=== PATIENT | male | born 1945 | race Caucasian/White ===

== ENCOUNTER → 2016-05-29 11:50 | Outpatient (CLI) | payer MEDICARE, OTHER ==
[2016-03-21 09:00] VITALS: BMI 35.7
[~2016-05-29 11:50] MED LIST: ASPIRIN81 MG PO; CHRONULAC30 ML PO; CLEOCIN HCL300 MG PO; ENULOSE10 G/15 ML PO; FLORAJEN3 CAPS460 MG PO; FOLIC ACID1 MG PO; GLUCOPHAGE1000 MG PO; HYDROCODONE-IB1 EAC3 PO; IPRAT-ALBUT 0.5-3 ML UPD; LASIX20 MG PO; MUCINEX DM ER1 EAC1 PO; MULTI-DAY VITAM1 TAB PO; OMNICEF300 MG PO; PRILOSEC20 MG PO; PRINIVIL20 MG PO; SAW PALMETTO450 MG PO; TESSALON PERLE100 MG PO; VITAMIN B-121000 MCG PO; XARELTO15 MG PO; ZITHROMAX250 MG PO
== END | disposition home or self-care (01) ==
LOC: D.US 11:50
DX: R18.8 Other ascites (principal); K74.60 Unspecified cirrhosis of liver

== ENCOUNTER 2016-08-04 18:56 | Inpatient (IN) | payer MEDICARE, OTHER ==
[~2016-08-04] VITALS: Ht 185.4 cm; Wt 108.2 kg
[~2016-08-04 18:56] MED LIST changes: -FLORAJEN3 CAPS460 MG PO; -IPRAT-ALBUT 0.5-3 ML UPD; -MUCINEX DM ER1 EAC1 PO; -OMNICEF300 MG PO; -TESSALON PERLE100 MG PO; -ZITHROMAX250 MG PO
[2016-08-04 19:41] LABS: HEMATOCRIT 33.5 % (42.0-54.0); MCHC 32.8 g/dL (31.0-37.0); MCV 91.3 fL (80.0-100.0); PLATELET COUNT 83 10x3/uL (130-400); RBC 3.67 10x6/uL (4.20-6.10); RDW 15.7 % (11.5-14.5); WBC 2.9 10x3/uL (4.8-10.8)
[2016-08-04 20:02] LABS: APPEARANCE CLEAR (CLEAR); BACTERIA FEW /hpf (NONE SEEN); BILIRUBIN NEGATIVE (NEGATIVE); COLOR DK YELLOW (YELLOW); EPITHELIAL CELLS 0-5 /hpf (0-5); GLUCOSE NEGATIVE (NEGATIVE); KETONE NEGATIVE (NEGATIVE); LEUKOCYTE ESTERASE NEGATIVE (NEGATIVE); MUCUS >1+ /lpf (NONE SEEN); NITRITE NEGATIVE (NEGATIVE); PROTEIN NEGATIVE (NEGATIVE); WHITE CELLS - URINE 0-5 /hpf (0-5)
[2016-08-04 20:08] LABS: EOSINOPHILS 3 % (0-7); LYMPHOCYTES 13 % (15-50); MONOCYTES 6 % (2-11); NEUTROPHILS 76 % (40-80); PLATELET ESTIMATE DECREASED
[2016-08-04 20:13] LABS: ALBUMIN 2.3 g/dL (3.4-5.0); ANION GAP 14.2 mmol/L (8-16); BILIRUBIN - TOTAL 2.28 mg/dL (0.2-1.3); CARBON DIOXIDE 23.4 mmol/L (21.0-32.0); CREATININE - SERUM 1.1 mg/dL (0.6-1.3); POTASSIUM - SERUM 3.6 mmol/L (3.5-5.1); PROTEIN - SERUM 6.4 g/dL (6.4-8.2)
[2016-08-04 20:22] LABS: CALCIUM 8.2 mg/dL (8.5-10.1)
[2016-08-05 00:37] VITALS: BP 92/48; Ht 185.4 cm; Wt 108.2 kg
--- NOTE | 2016-08-05 03:15 | NUR ---
RESTING WITH EYES CLOSED, RESP WITH EASE, NO DISTRESS NOTED, CL IN REACH
[2016-08-05 04:00] VITALS: BP 97/38
[2016-08-05 06:02] LABS: BASOPHILS 0.4 % (0.0-2.0); EOSINOPHILS 4.1 % (0-7); HEMATOCRIT 32.1 % (42.0-54.0); HEMOGLOBIN 10.3 g/dL (13.5-17.5); LYMPHOCYTES 15.4 % (15-50); MCH 29.4 pg (26.0-34.0); MCHC 32.1 g/dL (31.0-37.0); MCV 91.7 fL (80.0-100.0); MEAN PLATELET VOLUME 10.3 fL (7.4-10.4); MONOCYTES 21.6 % (2-11); NEUTROPHILS 58.5 % (40-80); PLATELET COUNT 82 10x3/uL (130-400); RDW 15.9 % (11.5-14.5); WBC 2.4 10x3/uL (4.8-10.8)
[2016-08-05 06:26] LABS: ANION GAP 9.2 mmol/L (8-16); BILIRUBIN - TOTAL 2.7 mg/dL (0.2-1.3); CALCIUM 8.3 mg/dL (8.5-10.1); CARBON DIOXIDE 25.4 mmol/L (21.0-32.0); CREATININE - SERUM 1.1 mg/dL (0.6-1.3); POTASSIUM - SERUM 3.6 mmol/L (3.5-5.1); PROTEIN - SERUM 5.9 g/dL (6.4-8.2)
[2016-08-05 08:04] VITALS: BP 91/41
[2016-08-05 12:11] VITALS: BP 107/43
--- NOTE | 2016-08-05 14:04 | NUR ---
Patient Name: LUISA WALLACE Admission Status: ER Accout number: [id number] Admission Date: 08-04-2016 : 1945 Admission Diagnosis: Attending: LEILA Current LOS: 1 Anticipated DC Date: 08-07-2016 Planned Disposition: Home or Self Care Primary Insurance: MEDICARE A & B Discharge Planning Comments: CM MET WITH PATIENT REGARDING D/C NEEDS AND PLANS. PATIENT STATED HE LIVES ALONE AND HAS NO STEPS OR STAIRS AT HIS HOME. PATIENTS NEIGHBOR (JOHANN) WILL DRIVE HIM HOME AT DISCHARGE. PATIENT STATED HE IS INDEPENDENT WITH HIS CARE AND HAS NO DME AT HOME. PATIENTS PCP IS DR. TRAN AND PHARMACY IS [facility] AT THE [facility]. PATIENT HAS NOT HAD HOME HEALTH BEFORE AND WANTS TO SEE IF DOCTOR THINKS HE NEEDS IT AT DISCHARGE. CM WILL CONTINUE TO FOLLOW PATIENT WITH D/C NEEDS AND PLANS. [facility]- [phone] JOHANN (FRIEND) [phone] [place] Driver: Galina Saunders Is the patient Alert and Oriented? Yes 0 * How many steps to enter\exit or inside your home? 0 0 * PCP DR. TRAN 0 * Pharmacy [facility] 0 * Preadmission Environment Home Alone 0 * ADLs Independent 0 * Equipment None 0 * List name and contact numbers for known caregivers / representatives who currently or will assist patient after discharge: JOHANN (NEIGHBOR) [phone] * Community resources currently utilized None 0 * Additional services required to return to the preadmission environment? Yes 0 * Can the patient safely return to the preadmission environment? Yes 0 * Has this patient been hospitalized within the prior 30 days at any hospital? No 0 Grand Total: 0
[2016-08-05 15:10] VITALS: BP 114/61
--- NOTE | 2016-08-05 15:45 | NUR ---
LYING SUPINE AT THIS TIME WITH RESPIRATIONS EVEN AND NON LABORED. CALL LIGHT IN REACH, DENIES NEEDS AT THIS TIME. BED IN LOWEST POSITION WITH WHEELS LOCKED. WILL CONTINUE WITH PLAN OF CARE.
--- NOTE | 2016-08-05 18:00 | NUR ---
PT HAS BEEN AWAKE AND ALERT ORINETD X 3 TODAY NOTED TO HAVE PIV TO RIGHT HAND NO ACUTE DISTRESS NOTED TODAY CALL LIGHT IN REACH SIDE RAILS UP X 2
[2016-08-06] VITALS: BP 119/58
--- NOTE | 2016-08-06 00:59 | NUR ---
PATIENT LYING IN BED. NO DISTRESS NOTED. DENIED PAIN AT THIS TIME. DENIED FURTHER NEEDS. REFUSED FINGER STICKS. HAD THEM DONE AT 1919. INTRUCTED TO CALL IF NEEDED ANYTHING. VERBALIZED UNDERSTANDING. NEED UA. INTRUCTED TO CALL WHEN URINATES. BED LOW, LOCKED, CALL LIGHT IN REACH.
--- NOTE | 2016-08-06 01:59 | NUR ---
PATIENT IS LYING IN BED COMFORTABLY. NO DISTRESS NOTED. DENIES NEEDS AT THIS TIME. INTRUCTED TO CALL IF NEEDED ANYTHING. BED LOW, LOCKED, CALL LIGHT IN REACH.
--- NOTE | 2016-08-06 03:00 | NUR ---
PT IN BED WITH NO DISTRESS. RESPIRATIONS EVEN AND UNLABORED. SIDE RAILS X 2. BED IS LOW. CALL LIGHT IN REACH.
[2016-08-06 04:00] VITALS: BP 107/59
[2016-08-06 06:31] LABS: BASOPHILS 0.8 % (0.0-2.0); EOSINOPHILS 5.3 % (0-7); HEMATOCRIT 32.7 % (42.0-54.0); HEMOGLOBIN 10.6 g/dL (13.5-17.5); IMMATURE GRANULOCYTES 0.4 % (0-5); LYMPHOCYTES 18.1 % (15-50); MCH 29.8 pg (26.0-34.0); MCHC 32.4 g/dL (31.0-37.0); MCV 91.9 fL (80.0-100.0); NEUTROPHILS 55.4 % (40-80); PLATELET COUNT 77 10x3/uL (130-400); RBC 3.56 10x6/uL (4.20-6.10); RDW 16.3 % (11.5-14.5); WBC 2.7 10x3/uL (4.8-10.8)
[2016-08-06 06:58] LABS: ANION GAP 12.8 mmol/L (8-16); BILIRUBIN - TOTAL 2.5 mg/dL (0.2-1.3); CARBON DIOXIDE 23.6 mmol/L (21.0-32.0); CREATININE - SERUM 1.1 mg/dL (0.6-1.3); POTASSIUM - SERUM 3.4 mmol/L (3.5-5.1); PROTEIN - SERUM 5.9 g/dL (6.4-8.2)
[2016-08-06 08:39] VITALS: BP 127/59
--- NOTE | 2016-08-06 09:20 | NUR ---
PT AWAKE AND ALERT ORIENTED X 3 LUNGS CLAER BILATERALLY NO ACUTE DISTRESS NTOED VOIDED TO URINAL FOR UA COLLECTED AND SENT TO LAB AWAITING RESULT.
[2016-08-06 11:43] VITALS: BP 126/70
--- NOTE | 2016-08-06 15:30 | NUR ---
PATIENT IS AWAKE, ALERT AND ORIENTED X'S 4. RESPIRATIONS ARE EVEN AND UNLABORED. PATIENT DENIES NEEDS. BED IN LOWEST POSITION, CALL LIGHT IN REACH.
[2016-08-06 17:04] VITALS: BP 128/69
--- NOTE | 2016-08-06 17:43 | NUR ---
PT WITH NO ACUTE DISTRESS NTOED VOICES ALL NEEDS TO STAFF CALL LIGHT INREACH SIDE RAILS UP X 2 UP AD ALMA TO BATHROOM. WILL MONITOR,
--- NOTE | 2016-08-06 21:31 | NUR ---
PATIENT RESTING IN BED. NO SIGNS OF DISTRESS NOTED AT THIS TIME. SCHEDULED MEDS GIVEN. SHIFT ASSESSMENT COMPLETED. DENIES ANY NEEDS AT THIS TIME. BED LOW. CALL LIGHT IN REACH.
[2016-08-07] VITALS: BP 113/62
[2016-08-07 00:13] LABS: APPEARANCE CLEAR (CLEAR); BILIRUBIN NEGATIVE (NEGATIVE); COLOR DK YELLOW (YELLOW); GLUCOSE NEGATIVE (NEGATIVE); KETONE NEGATIVE (NEGATIVE); LEUKOCYTE ESTERASE TRACE (NEGATIVE); NITRITE NEGATIVE (NEGATIVE); PROTEIN NEGATIVE (NEGATIVE); UROBILINOGEN NORMAL (NORMAL)
[2016-08-07 00:40] LABS: BACTERIA FEW /hpf (NONE SEEN); EPITHELIAL CELLS RARE /hpf (0-5); RED CELLS - URINE 0-5 /hpf (0-5); WHITE CELLS - URINE 0-5 /hpf (0-5)
[2016-08-07 04:00] VITALS: BP 111/60
--- NOTE | 2016-08-07 04:00 | NUR ---
PATIENT SLEEPING WITH NO DISTRESS NOTED. AGREE WITH FISH FRYER ASSESSMENT.
[2016-08-07 05:18] LABS: BASOPHILS 0.7 % (0.0-2.0); EOSINOPHILS 9.3 % (0-7); HEMATOCRIT 31.6 % (42.0-54.0); HEMOGLOBIN 10.6 g/dL (13.5-17.5); LYMPHOCYTES 19.9 % (15-50); MCH 30.4 pg (26.0-34.0); MCHC 33.5 g/dL (31.0-37.0); MCV 90.5 fL (80.0-100.0); MEAN PLATELET VOLUME 10.6 fL (7.4-10.4); NEUTROPHILS 44.1 % (40-80); PLATELET COUNT 77 10x3/uL (130-400); RBC 3.49 10x6/uL (4.20-6.10); RDW 16.4 % (11.5-14.5); WBC 2.8 10x3/uL (4.8-10.8)
[2016-08-07 05:35] LABS: ALBUMIN 2.1 g/dL (3.4-5.0); ALKALINE PHOSPHATASE 98 U/L (46-116); ALT (SGPT) 28 U/L (10-68); CALCIUM 7.8 mg/dL (8.5-10.1); GLUCOSE 124 mg/dL (74-106); PROTEIN - SERUM 6.1 g/dL (6.4-8.2); UREA NITROGEN 11 mg/dL (7-18); eGFR NON AFRICAN AMERICAN 79 mL/min (90-120)
[2016-08-07 05:58] LABS: CALC OSMOLALITY 273 mosm/kg (275-300); CHLORIDE - SERUM 104 mmol/L (98-107); POTASSIUM - SERUM 3.6 mmol/L (3.5-5.1); SODIUM 137 mmol/L (136-145)
--- NOTE | 2016-08-07 07:35 | NUR ---
PT AOX4 RESP EVEN AND NONLABORED PT DENIES NEEDS AT THIS TIME BED AT LOWEST SETTING CALL LIGHT WITHIN REACH. WILL CONTINUE TO MONITOR
[2016-08-07 08:33] VITALS: BP 116/63
[2016-08-07 12:00] VITALS: BP 115/57
[2016-08-07] MEDS ORDERED: IPRAT-ALBUT 0.5-3 ML UPD (12:57)
[2016-08-07] MEDS ORDERED: TESSALON PERLE100 MG PO (12:57)
[2016-08-07] MEDS ORDERED: MUCINEX DM ER1 EAC1 PO (12:57)
[2016-08-07] MEDS ORDERED: FLORAJEN3 CAPS460 MG PO (12:57)
[2016-08-07] MEDS ORDERED: ZITHROMAX250 MG PO (12:58)
[2016-08-07] MEDS ORDERED: OMNICEF300 MG PO (12:59)
--- NOTE | 2016-08-07 13:50 | NUR ---
CM REASSESSMENT NOTE: PATIENT IS BEING D/C HOME TODAY - FRIEND DRIVING HIM. PATIENT STATED HE DID NOT NEED HOME HEALTH AND HAD NO OTHER NEEDS FOR DISCHARGE.
--- NOTE | 2016-08-07 17:06 | NUR ---
PT. AOX4 RESP EVEN AND NONLABORED IV DISCONTINUED WITH CATHETER INTACT.
--- NOTE | 2016-08-07 17:45 | NUR ---
PT OUT OF BUILDING VIA WHEELCHAIR VIA PRIVATE VEHICLE AT THIS TIME
== END 2016-08-07 17:53 | disposition home or self-care (01) | DRG 194 ==
LOC: D.ER 18:56 → D.MS 20:59
PROVIDERS: Family Medicine; ADMIT Family Medicine
DX: J18.9 Pneumonia, unspecified organism (principal); J90 Pleural effusion, not elsewhere classified; R53.1 Weakness; E11.65 Type 2 diabetes mellitus with hyperglycemia; K74.60 Unspecified cirrhosis of liver; D69.6 Thrombocytopenia, unspecified

== ENCOUNTER → 2016-12-20 07:19 | Outpatient (CLI) | payer MEDICARE, OTHER ==
[2016-08-05 00:37] VITALS: BMI 31.4
[~2016-12-20 07:19] MED LIST changes: +FLORAJEN3 CAPS460 MG PO; +IPRAT-ALBUT 0.5-3 ML UPD; +MUCINEX DM ER1 EAC1 PO; +OMNICEF300 MG PO; +TESSALON PERLE100 MG PO; +ZITHROMAX250 MG PO
== END | disposition home or self-care (01) ==
LOC: D.US 07:19
DX: K70.30 Alcoholic cirrhosis of liver without ascites (principal); R19.01 Right upper quadrant abdominal swelling, mass and lump

== ENCOUNTER → 2016-12-26 07:54 | Outpatient (CLI) | payer MEDICARE, OTHER ==
[2016-08-05 00:37] VITALS: BMI 31.4
== END | disposition home or self-care (01) ==
LOC: D.CT 07:54
DX: R16.0 Hepatomegaly, not elsewhere classified (principal)

== ENCOUNTER 2017-01-10 05:25 | Outpatient (CLI) | payer MEDICARE, OTHER ==
[~2017-01-10] VITALS: Ht 185.4 cm; Wt 123.6 kg
--- NOTE | ~2017-01-10 | HEMODYNAMI ---
PATIENT:LUISA WALLACE MEDICAL RECORD: [id number] : [birth year] LOCATION:[facility] ADMISSION DATE: 01/10/17 Generatedon:01/10/201711:22 Patient name: LUISA WALLACE Patient #: [id number] SSN: D OB: 1945 Date of study: 01/10/2017 Page: Of Hemodynamic Procedure Report Patient Data Patient Demographics Procedure consent was obtained First Name: LUISA Gender: Male Last Name: RODRIGO : 1945 Middle Initial: D Age: 71 year(s) Patient #: [id number] Race: Unknown Additional ID: [id number] Contact details Address: [address] [place] [address] State: [place] City: [place] Zip code: [address] Past Medical History Allergies: No known allergies Admission Admission Data Admission Date: 01/10/2017 Admission Time: 5:25 Procedure Procedure Types Cath Procedure Peripheral Cath Diagnostic Procedure Miscellaneous Procedure Description Procedure Date Procedure Date: 01/10/2017 Procedure Start Time: 10:08 Procedure Staff Name Function Gab Zafar MD Performing Physician Kamilah Moore RT Scrub Cody Guerra RT Monitor Procedure Data Cath Procedure Fluoroscopy Diagnostic fluoroscopy Total fluoroscopy Time: 0 time: 0 min min Diagnostic fluoroscopy Total fluoroscopy dose: 963 dose: 963 mGy mGy Contrast Material Contrast Material Type Amount (ml) Isovue 300 42 Diagnostic catheters Device Type Used For End Catheter Placement Diagnostic Infinity 5Fr MPA-2 catheter Merit Impress COBRA 2 5Fr 65CM catheter Merit ULTRA BOLUS FLUSH 5Fr 65CM catheter Hemodynamics Rest Heart Rate: 66 (bpm) Pressure Samples Time Site Value (mmHg) Purpose Heart Use Rate(bpm) 10:31 Portal (22) Snapshot 86 10:33 RA 10/ (6) Snapshot 86 10:41 RA 10/ (8) Snapshot 86 10:42 Portal (18) Snapshot 92 Snapshots Pre Cath Intra NCS Post Cath Vital Signs Time Heart Resp SPO2 NIBP (mmHg) Rhythm Pain Sedation Rate (ipm) (%) Status Level (bpm) 9:30:45 70 13 100 135/73(109) NSR 0 (11) 10(A) , No pain 9:35:07 69 72 100 134/72(102) NSR 0 (11) 10(A) , No pain 9:40:06 74 37 98 Measuring NSR 0 (11) 10(A) , No pain 9:40:19 77 32 98 108/64(82) NSR 0 (11) 10(A) , No pain 9:45:17 86 31 95 Measuring NSR 0 (11) 10(A) , No pain 9:45:24 86 40 95 136/77(102) NSR 0 (11) 10(A) , No pain 9:49:44 82 21 93 118/70(93) NSR 0 (11) 10(A) , No pain 9:54:00 84 17 92 119/65(86) NSR 0 (11) 10(A) , No pain 9:58:14 83 15 93 113/65(82) NSR 0 (11) 10(A) , No pain 10:02:30 83 17 92 116/64(84) NSR 0 (11) 10(A) , No pain 10:06:48 80 16 95 119/63(79) NSR 0 (11) 10(A) , No pain 10:11:04 82 14 94 112/64(75) NSR 0 (11) 10(A) , No pain 10:15:18 86 15 93 112/61(93) NSR 0 (11) 10(A) , No pain 10:19:34 85 17 92 112/61(85) NSR 0 (11) 10(A) , No pain 10:23:48 84 17 93 115/64(82) NSR 0 (11) 10(A) , No pain 10:28:04 84 15 92 110/60(77) NSR 0 (11) 10(A) , No pain 10:32:20 85 17 92 115/59(82) NSR 0 (11) 10(A) , No pain 10:36:36 87 16 92 118/66(90) NSR 0 (11) 10(A) , No pain 10:40:50 87 15 92 126/72(94) NSR 0 (11) 10(A) , No pain 10:45:10 88 18 92 121/65(84) NSR 0 (11) 10(A) , No pain 10:49:26 87 16 91 116/65(92) NSR 0 (11) 10(A) , No pain 10:53:46 88 17 92 121/60(86) NSR 0 (11) 10(A) , No pain 10:58:07 85 16 93 115/61(81) NSR 0 (11) 10(A) , No pain 11:02:24 80 16 94 122/63(87) NSR 0 (11) 10(A) , No pain 11:06:45 97 136/75(111) NSR 0 (11) 10(A) , No pain 11:08:58 98 120/73(103) NSR 0 (11) 10(A) , No pain 11:13:18 136/74(106) NSR 0 (11) 10(A) , No pain 11:17:59 No Cuff NSR 0 (11) 10(A) , No pain 11:21:34 No Cuff NSR 0 (11) 10(A) , No pain Procedure Log Time Note 9:27:24 Cody Guerra RT (R) (CV) sent for patient. Start room use. 9:27:37 Time tracking: Regular hours 9:27:42 Plan of Care:Hemodynamics will remain stable., Cardiac rhythm will remain stable., Comfort level will be maintained., Respiratory function will remain adequate., Patient/ family verbilizes understanding of procedure., Procedure tolerated without complication., Recovers from procedure without complications.. 9:28:05 Patient received from Outpatients to IR Alert and oriented. Tansferred to table in Supine position. 9:28:06 Correct patient and procedure confirmed by team. 9:28:08 Signed procedure consent form obtained from patient. 9:28:08 ECG and BP/O2 sat monitors applied to patient. 9:28:17 Full Disclosure recording started 9:28:18 - 9:28:22 H&P Date Dictated: 01/10/2017 H&P Addendum completed by physician on day of procedure. (MUST COMPLETE FOR ALL OUTPATIENTS). 9:28:24 - 9:29:05 SEE ANESTHESIA NOTE FOR PRE PROCEDURE TIVA 9:29:11 - 9:29:17 Use device set IR Diagnostic 9:29:22 Acist Syringe opened to sterile field. 9:29:23 Acist Hand Control opened to sterile field. 9:29:23 Acist Manifold opened to sterile field. 9:29:24 Bag Decanter opened to sterile field. 9:29:24 Sterile Angiographic Pack opened to sterile field. 9:29:27 Vital chart was started 9:29:28 Baseline sample Acquired. 9:31:28 Right neck area was prepped with chlora-prep and draped in sterile fashion 10:06:51 Physician arrived 10:06:54 --------ALL STOP TIME OUT------ 10:06:54 Final Timeout: patient, procedure, and site verified with staff and physician. All members of the team are in agreement. 10:07:02 Right neck site verified by team. 10:07:08 Physical assessment completed. ASA score P 3 - A patient with severe systemic disease as per Gab Zafar MD. 10:07:12 Sedation plan: IV Moderate Sedation Propofol 10:07:57 Procedure started. 10:08:03 Local anesthetic to right IJ vein with Lidocaine 1% by Gab Zafar MD.INITIAL ACCESS ONLY 10:08:13 TUBING, CONTRAST INJCTN HI PRES opened to sterile field. 10:08:14 TUBING, CONTRAST INJCTN HI PRES opened to sterile field. 10:08:14 Micropuncture VSI 4FR kit opened to sterile field. 10:08:15 Cook BENTSON 145cm guide wire opened to sterile field. 10:08:15 Bard SNARE RETRIEVAL KIT opened to sterile field. 10:10:58 Terumo 6Fr [place] Sheath opened to sterile field. 10:11:13 A Diagnostic Infinity 5Fr MPA-2 catheter was advanced over the wire and used for . 10:20:21 Terumo ANGLE 180L glide wire opened to sterile field. 10:20:46 Terumo TORQUE DEVICE PLASTIC .038 opened to sterile field. 10:22:28 A PrimeRevenue Impress COBRA 2 5Fr 65CM catheter was advanced over the wire an d used for . 10:26:54 A PrimeRevenue ULTRA BOLUS FLUSH 5Fr 65CM catheter was advanced over the wire and used for . 10:30:03 Zero performed for pressure channel P1 10:31:10 Zero performed for pressure channel P1 10:33:07 Zero performed for pressure channel P1 10:37:10 BasixTOUCH Inflation Syringe opened to sterile field. 10:38:41 Inflation number: 1 A Cordis Powerflex Pro 10.0 x 40 x 80cm balloon was prepped and advanced across the Undefined1, then inflated 10:54:09 Procedure ended.(Physican Out) 10:54:28 Contrast amount:Isovue 300 42ml. 10:56:18 Fluoroscopy time 00.00 minutes. 10:56:23 Fluoroscopy dose: 963 mGy 10:56:23 Flurop Dose total: 963 10:56:25 Sharps counted by scrub and verified by R.N. 10:56:38 SEE ANESTHESIA NOTE FOR POST PROCEDURE TIVA 10:56:40 Insertion/operative site no bleeding no hematoma. 10:56:45 Post-op/insertion site Right Jugular vein dressed using a 4 x 4 and Tegaderm. 11:18:07 Report given to Outpatients. 11:18:10 Patient transfered to Outpatients with Stretcher. 11:22:26 Vital chart was stopped Intervention Summary Intervention Notes Time ActionType Lesion and Equipment Action# Pressure Duration Attributes Used 10:38:41 Inflate Undefined1 Cordis 1 0 00:00 balloon Powerflex Pro 10.0 x 40 x 80cm balloon Device Usage Item Name Manufacture Quantity Catalog Number [facility] Part Current Min imal Lot# / Charge Number Stock Stock Serial# Code Acist Syringe Acist 1 64754 404020 029134 071273 20 Medical Systems Inc Acist Hand Acist 1 39412 147958 196215 306137 5 Control Medical Systems Inc Acist Acist 1 90401 598051 025971 814803 5 Manifold Medical Systems Inc Bag Decanter Microtek 1 2002S 312851 74753 501855 5 Medical Inc. Sterile Cardinal 1 [id number] 736042 756617 5 Angiographic Health Pack TUBING, Merit 2 [id number] 348460 651336 896753 5 CONTRAST Medical INJCTN HI PRES Micropuncture VSI VASCULAR 1 7266V 079784 480454 5 VSI 4FR kit SOLUTIONS [facility] 1 [id number] 641244 970593 5 9903674 145cm guide wire Bard SNARE Bard 1 SRK20 497097 821782 5 RETRIEVAL KIT Terumo 6Fr Terumo 1 HYD784 283003 439164 312795 40 [place] Sheath Diagnostic Cardinal 1 [id number] 341591 809143 698909 5 Infinity 5Fr Health MPA-2 catheter Terumo ANGLE Terumo 1 GU1736 428067 113186 884766 5 180L glide wire Terumo TORQUE Gypsum 1 TD01 796778 131701 699327 5 DEVICE Scientific PLASTIC .038 Merit Impress Merit 1 [id number] 134066 163705 764635 5 COBRA 2 5Fr Medical 65CM catheter Merit ULTRA Merit 1 [id number] 650910 669739 5 BOLUS FLUSH Medical 5Fr 65CM catheter BasixTOUCH Merit 1 OJ9032 429557 575987 665314 5 Inflation Medical Syringe Cordis Cardinal 1 [id number] 043082 308390 749774 5 Powerflex Pro Health 10.0 x 40 x 80cm balloon Signature Audit [place] Stage Time Signature Unsigned Intra-Procedure 01/10/2017 Cody 11:22:23 AM Shuffield RT (R) (CV) Signatures Monitor : Cody Signature : Shuffield RT Date : Time : [facility] [address] [place] [address]
[2017-01-10 05:59] LABS: BASOPHILS 0.6 % (0-2); EOSINOPHILS 7.1 % (0-7); HEMATOCRIT 33.9 % (42.0-54.0); HEMOGLOBIN 10.9 g/dL (13.5-17.5); IMMATURE GRANULOCYTES 0.3 % (0-5); LYMPHOCYTES 14.8 % (15-50); MCH 29.1 pg (26.0-34.0); MCHC 32.2 g/dL (31.0-37.0); MCV 90.4 fL (80.0-100.0); MEAN PLATELET VOLUME 10.1 fL (7.4-10.4); MONOCYTES 12.7 % (2-11); NEUTROPHILS 64.5 % (40-80); RBC 3.75 10x6/uL (4.20-6.10); RDW 16.1 % (11.5-14.5); WBC 3.2 10x3/uL (4.8-10.8)
[2017-01-10 06:01] LABS: PLATELET COUNT 112 10x3/uL (130-400)
[2017-01-10 06:12] LABS: APTT 37.7 SECONDS (22.8-39.4); INR 1.44 (0.85-1.17); PROTIME 17.5 SECONDS (11.6-15.0)
[2017-01-10 06:17] LABS: ALBUMIN 2.4 g/dL (3.4-5.0); ALKALINE PHOSPHATASE 121 U/L (46-116); ALT (SGPT) 27 U/L (10-68); CALC OSMOLALITY 281 mosm/kg (275-300); CALCIUM 8.5 mg/dL (8.5-10.1); CARBON DIOXIDE 25.2 mmol/L (21.0-32.0); CHLORIDE - SERUM 107 mmol/L (98-107); CREATININE - SERUM 0.9 mg/dL (0.6-1.3); GLUCOSE 144 mg/dL (74-106); POTASSIUM - SERUM 4.1 mmol/L (3.5-5.1); PROTEIN - SERUM 7.1 g/dL (6.4-8.2); SODIUM 140 mmol/L (136-145); UREA NITROGEN 12 mg/dL (7-18); eGFR NON AFRICAN AMERICAN 89 mL/min (90-120)
[2017-01-10 07:49] VITALS: Ht 185.4 cm; Wt 123.6 kg
--- NOTE | 2017-01-10 11:30 | NUR ---
SEE PROCEDURE VITAL SIGN SHEET FOR ALL VITAL SIGNS
--- NOTE | 2017-01-10 11:45 | NUR ---
FULL LIQUID TRAY PROVIDED
--- NOTE | 2017-01-10 13:10 | NUR ---
SITTING UP IN CHAIR DRESSED PIV DC W/CATHETER TIP INTACT
--- NOTE | 2017-01-10 13:15 | NUR ---
DC TEACHING COMPLETE DC PAPERS GIVEN W/FU APPT
--- NOTE | 2017-01-10 13:25 | NUR ---
PT AMBULATED TO [facility] TO MEET FRIEND WHO WAS TAKING HIM HOME MARTHA GLOVER RN ESCORTED PT TO [facility]
== END 2017-01-10 13:25 | disposition home or self-care (01) ==
LOC: D.OPS 05:25 → D.RAD 09:00 → D.OPS 09:00
PROVIDERS: Radiology Diagnostic Radiology
DX: K74.60 Unspecified cirrhosis of liver (principal); I10 Essential (primary) hypertension; E11.9 Type 2 diabetes mellitus without complications; R18.8 Other ascites; Z01.812 Encounter for preprocedural laboratory examination

== ENCOUNTER → 2017-01-14 09:58 | Outpatient (CLI) | payer MEDICARE, OTHER ==
[2017-01-10 07:49] VITALS: BMI 35.9
[2017-01-14 10:38] LABS: CALC OSMOLALITY 278 mosm/kg (275-300); CALCIUM 7.8 mg/dL (8.5-10.1); CARBON DIOXIDE 25.5 mmol/L (21.0-32.0); CHLORIDE - SERUM 109 mmol/L (98-107); CREATININE - SERUM 0.9 mg/dL (0.6-1.3); GLUCOSE 134 mg/dL (74-106); POTASSIUM - SERUM 4.7 mmol/L (3.5-5.1); SODIUM 139 mmol/L (136-145); UREA NITROGEN 11 mg/dL (7-18); eGFR NON AFRICAN AMERICAN 89 mL/min (90-120)
== END | disposition home or self-care (01) ==
LOC: D.LAB 08:00
PROVIDERS: Radiology Diagnostic Radiology
DX: N17.9 Acute kidney failure, unspecified (principal)

== ENCOUNTER 2017-06-03 14:06 | Inpatient (IN) | payer MEDICARE, OTHER ==
[~2017-06-03] VITALS: Ht 185.4 cm; Wt 129.6 kg
[2017-06-03 15:18] LABS: BASOPHILS 0 % (0-2); EOSINOPHILS 6.4 % (0-7); HEMATOCRIT 33.6 % (42.0-54.0); HEMOGLOBIN 10.3 g/dL (13.5-17.5); IMMATURE GRANULOCYTES 0.7 % (0-5); LYMPHOCYTES 16.6 % (15-50); MCH 26.7 pg (26.0-34.0); MCHC 30.7 g/dL (31.0-37.0); MEAN PLATELET VOLUME 10.9 fL (7.4-10.4); MONOCYTES 14.6 % (2-11); NEUTROPHILS 61.7 % (40-80); PLATELET COUNT 109 10x3/uL (130-400); RBC 3.86 10x6/uL (4.20-6.10); RDW 18.3 % (11.5-14.5)
[2017-06-03 15:31] LABS: APPEARANCE CLEAR (CLEAR); BILIRUBIN NEGATIVE (NEGATIVE); COLOR DK YELLOW (YELLOW); GLUCOSE NEGATIVE (NEGATIVE); KETONE NEGATIVE (NEGATIVE); NITRITE NEGATIVE (NEGATIVE); PROTEIN TRACE mg/dL (NEGATIVE)
[2017-06-03 15:33] LABS: ALBUMIN 1.7 g/dL (3.4-5.0); ANION GAP 11.4 mmol/L (8-16); BILIRUBIN - TOTAL 2.7 mg/dL (0.2-1.3); CALCIUM 7.8 mg/dL (8.5-10.1); CARBON DIOXIDE 25.5 mmol/L (21.0-32.0); CREATININE - SERUM 1.1 mg/dL (0.6-1.3); POTASSIUM - SERUM 3.9 mmol/L (3.5-5.1); PROTEIN - SERUM 5.9 g/dL (6.4-8.2)
[2017-06-03 15:35] LABS: BACTERIA FEW /hpf (NONE SEEN); MUCUS <1+ /lpf (NONE SEEN); RED CELLS - URINE OCC /hpf (0-5)
[2017-06-04] VITALS (9 sets, daily range): BP systolic 111–125; BP diastolic 51–68; Ht 185.4 cm; Wt 129.6 kg
[2017-06-04 05:24] LABS: HEMATOCRIT 33.3 % (42.0-54.0); HEMOGLOBIN 10.2 g/dL (13.5-17.5); MCH 26.7 pg (26.0-34.0); MCHC 30.6 g/dL (31.0-37.0); MCV 87.2 fL (80.0-100.0); MEAN PLATELET VOLUME 10.1 fL (7.4-10.4); PLATELET COUNT 89 10x3/uL (130-400); RBC 3.82 10x6/uL (4.20-6.10); RDW 18.3 % (11.5-14.5); WBC 2.8 10x3/uL (4.8-10.8)
[2017-06-04 05:38] LABS: INR 1.68 (0.85-1.17); PROTIME 19.3 SECONDS (11.6-15.0)
[2017-06-04 05:43] LABS: HEMOGLOBIN A1C 6.1 % (4.8-6.0)
[2017-06-04 05:44] LABS: ALBUMIN 1.8 g/dL (3.4-5.0); ANION GAP 12.1 mmol/L (8-16); BILIRUBIN - TOTAL 2.85 mg/dL (0.2-1.3); CALCIUM 7.9 mg/dL (8.5-10.1); CARBON DIOXIDE 26.5 mmol/L (21.0-32.0); CREATININE - SERUM 1.1 mg/dL (0.6-1.3); POTASSIUM - SERUM 3.6 mmol/L (3.5-5.1); PROTEIN - SERUM 5.8 g/dL (6.4-8.2)
[2017-06-04 08:03] LABS: ANISOCYTOSIS OCC; EOSINOPHILS 5 % (0-7); LYMPHOCYTES 14 % (15-50); MONOCYTES 12 % (2-11); NEUTROPHILS 67 % (40-80); POIKILOCYTOSIS OCC; POLYCHROMASIA OCC
[2017-06-04 08:04] LABS: ELLIPTOCYTES 1+
[2017-06-04 08:08] LABS: PLATELET ESTIMATE DECREASED; SMUDGE CELLS OCC
[2017-06-04 08:09] LABS: ROULEAUX OCC; TEAR DROP CELLS OCC
[2017-06-05 04:00] VITALS: BP 115/65
[2017-06-05 04:47] LABS: BASOPHILS 0.4 % (0-2); EOSINOPHILS 4.9 % (0-7); HEMATOCRIT 30.1 % (42.0-54.0); HEMOGLOBIN 9.3 g/dL (13.5-17.5); IMMATURE GRANULOCYTES 0.7 % (0-5); LYMPHOCYTES 15.4 % (15-50); MCH 26.8 pg (26.0-34.0); MCHC 30.9 g/dL (31.0-37.0); MCV 86.7 fL (80.0-100.0); MEAN PLATELET VOLUME 10.6 fL (7.4-10.4); MONOCYTES 19.5 % (2-11); NEUTROPHILS 59.1 % (40-80); PLATELET COUNT 90 10x3/uL (130-400); RBC 3.47 10x6/uL (4.20-6.10); RDW 18.6 % (11.5-14.5); WBC 2.7 10x3/uL (4.8-10.8)
[2017-06-05 05:02] LABS: INR 1.91 (0.85-1.17); PROTIME 21.3 SECONDS (11.6-15.0)
[2017-06-05 05:12] LABS: ALBUMIN 1.7 g/dL (3.4-5.0); ALKALINE PHOSPHATASE 88 U/L (46-116); ALT (SGPT) 56 U/L (10-68); CALC OSMOLALITY 278 mosm/kg (275-300); CALCIUM 7.4 mg/dL (8.5-10.1); CARBON DIOXIDE 27.6 mmol/L (21.0-32.0); CHLORIDE - SERUM 106 mmol/L (98-107); GLUCOSE 134 mg/dL (74-106); POTASSIUM - SERUM 3.3 mmol/L (3.5-5.1); PROTEIN - SERUM 5.5 g/dL (6.4-8.2); SODIUM 140 mmol/L (136-145); UREA NITROGEN 8 mg/dL (7-18); eGFR NON AFRICAN AMERICAN 78 mL/min (90-120)
[2017-06-05 08:18] VITALS: BP 110/63
[2017-06-05 11:11] VITALS: BP 112/81
[2017-06-05] MEDS ORDERED: TESSALON PERLE100 MG PO (13:06)
[2017-06-05] MEDS ORDERED: SILVADENE CREAM50 GM TOPICAL (13:08)
[2017-06-05] MEDS ORDERED: OMNICEF300 MG PO (13:09)
[2017-06-05 14:28] LABS: HEPATITIS C ANTIBODY 0.2 (0.0-0.9)
== END 2017-06-05 15:39 | disposition home or self-care (01) | DRG 194 ==
LOC: D.ER 14:06 → D.M2 18:53
PROVIDERS: Emergency Medicine; Family Medicine
DX: J18.9 Pneumonia, unspecified organism (principal); D61.818 Other pancytopenia; K92.1 Melena; E11.65 Type 2 diabetes mellitus with hyperglycemia; K74.60 Unspecified cirrhosis of liver; W19.XXXA Unspecified fall, initial encounter; B37.2 Candidiasis of skin and nail

== ENCOUNTER → 2017-07-09 06:57 | Outpatient (CLI) | payer MEDICARE, OTHER ==
[2017-06-04 13:46] VITALS: BMI 36.5
[~2017-07-09 06:57] MED LIST changes: +SILVADENE CREAM50 GM TOPICAL
== END | disposition home or self-care (01) ==
LOC: D.US 06:57
DX: R18.8 Other ascites (principal); K74.60 Unspecified cirrhosis of liver

== ENCOUNTER → 2017-07-23 12:25 | Outpatient (CLI) | payer MEDICARE, OTHER ==
[2017-06-04 13:46] VITALS: BMI 36.5
--- NOTE | ~2017-07-23 | HEMODYNAMI ---
PATIENT:LUISA WALLACE MEDICAL RECORD: [id number] : 47 LOCATION:D.CT ADMISSION DATE: 07/23/17 Generatedon:07/23/201714:59 Patient name: LUISA WALLACE Patient #: [id number] SSN: D OB: 1945 Date of study: 07/23/2017 Page: Of Hemodynamic Procedure Report Patient Data Patient Demographics Procedure consent was obtained First Name: LUISA Gender: Male Last Name: RODRIGO : 1945 Middle Initial: D Age: 71 year(s) Patient #: [id number] Race: Unknown Additional ID: [id number] Contact details Address: [address] [place] [address] State: [place] City: [place] Zip code: [address] Past Medical History Allergies: No known allergies Admission Admission Data Admission Date: 07/23/2017 Admission Time: 12:25 Procedure Procedure Types Cath Procedure Peripheral Cath Diagnostic Procedure Cath Peripheral Miscellaneous PARACENTESIS WITH GUIDE Procedure Description Procedure Date Procedure Date: 07/23/2017 Procedure Start Time: 13:51 Procedure Staff Name Function Gab Zafar MD Performing Physician Valeria Britt RT Shell Trim Operator Valeria Britt RT Monitor Haritha Haines RN Nurse Jennifer Dobbs RN Nurse Cody Guerra RT Scrub Procedure Medications Medication Administration Route Dosage unlisted medication Hemodynamics Rest Pre Cath Intra NCS Post Cath Vital Signs Time SPO2 etCO2 NIBP (mmHg) Rhythm Pain Sedation (%) (mmHg) Status Level 13:45:32 99 0 188/122(154) NSR 0 (11) , 10(A) No pain 13:49:03 99 0 199/189(196) NSR 0 (11) , 10(A) No pain 13:51:28 100 0 152/96(109) NSR 0 (11) , 10(A) No pain 13:55:56 99 0 162/97(128) NSR 0 (11) , 10(A) No pain 14:00:31 99 0 174/101(134) NSR 0 (11) , 10(A) No pain 14:05:07 99 0 155/100(134) NSR 0 (11) , 10(A) No pain 14:09:38 99 0 151/98(131) NSR 0 (11) , 10(A) No pain 14:14:10 99 0 154/83(119) NSR 0 (11) , 10(A) No pain 14:18:45 98 0 131/81(108) NSR 0 (11) , 10(A) No pain 14:23:07 99 0 140/83(111) NSR 0 (11) , 10(A) No pain 14:27:35 99 0 146/76(115) NSR 0 (11) , 10(A) No pain 14:32:07 99 0 147/76(98) NSR 0 (11) , 10(A) No pain 14:36:38 98 0 141/79(101) NSR 0 (11) , 10(A) No pain 14:41:06 99 0 149/78(112) NSR 0 (11) , 10(A) No pain 14:45:37 99 0 150/88(130) NSR 0 (11) , 10(A) No pain 14:50:11 100 0 153/79(125) NSR 0 (11) , 10(A) No pain 14:54:45 99 0 141/85(108) NSR 0 (11) , 10(A) No pain 14:58:45 0 No Cuff NSR 0 (11) , 10(A) No pain Medications Time Medication Route Dose Verified Delivered Reason Notes Effectivenes s by by 14:18:39 KELSEY Haines RN, MD Procedure Log Time Note 13:44:10 Vital chart was started 13:46:07 Time tracking: Regular hours 13:46:15 Plan of Care:Hemodynamics will remain stable., Cardiac rhythm will remain stable., Comfort level will be maintained., Respiratory function will remain adequate., Patient/ family verbilizes understanding of procedure., Procedure tolerated without complication., Recovers from procedure without complications.. 13:47:06 Patient received from Other to IR Alert and oriented. Tansferred to table in Supine position. 13:47:25 Signed procedure consent form obtained from patient. 13:47:38 Pre-procedure instructions explained to patient. 13:47:39 Pre-op teaching completed and patient verbalized understanding. 13:47:43 Family unavailable. 13:51:02 --------ALL STOP TIME OUT------ 13:51:03 Final Timeout: patient, procedure, and site verified with staff and physician. All members of the team are in agreement. 13:51:07 Right abdomen site verified by team. 13:51:13 Sedation plan: Local Anesthetic Medication:Versed, Fentanyl 13:51:42 Procedure started. 13:51:42 Full Disclosure recording started 13:51:47 Local anesthetic to Abdominal area with Lidocaine 1% by Gab Zafar MD.INITIAL ACCESS ONLY 13:52:20 UEXH-L-YWOWSOHJ 8FR CATH DRAIN TRAY opened to sterile field. 14:09:08 CONNECTING TUBE FOR DRAINAGE BAG ([id number]) opened to sterile field. 14:18:39 ALBUMIN was administered by Haritha Haines RN; ; 14:29:37 Procedure ended.(Physican Out) 14:30:04 9.3 liters drained from abdomen 14:30:09 Procedure and supply charges have been captured, reviewed, submitted and are correct. 14:58:40 Post-op/insertion site Right Abdominal area dressed using a 4 x 4 and Tegaderm. 14:58:47 Post Abdominal area:stable 14:58:59 Report given to Other. 14:59:04 Patient transfered to Other with Ambulatory. 14:59:26 instructins given to pt per 14:59:50 Vital chart was stopped Device Usage Item Name Manufacture Quantity Catalog Hospital Part Current Mini mal Lot# / Number Charge Number Stock Stock Serial# Code AXOS-I-RPNIVDFI CareFusion 1 [id number] [id number] 5 8FR CATH DRAIN TRAY CONNECTING TUBE [place] 1 [id number] [id number] [id number] [id number] 5 FOR DRAINAGE Scientific BAG ([id number]) Signature Audit [place] Stage Time Signature Unsigned Intra-Procedure 07/23/2017 Cody 2:59:48 PM Shuffield RT (R) (CV) Signatures Monitor : Valeria Britt RT Signature : Date : Time : [place] [address] [place] [address]
== END | disposition home or self-care (01) ==
LOC: D.CT 12:25
DX: K74.60 Unspecified cirrhosis of liver (principal)

== ENCOUNTER → 2017-07-28 13:42 | Outpatient (CLI) | payer MEDICARE, OTHER ==
[2017-06-04 13:46] VITALS: BMI 36.5
== END | disposition home or self-care (01) ==
LOC: D.SP 13:42
DX: Z48.817 Encounter for surgical aftercare following surgery on the skin and subcutaneous tissue (principal)

== ENCOUNTER → 2018-02-09 08:34 | Outpatient (CLI) | payer MEDICARE, OTHER ==
[2017-06-04 13:46] VITALS: BMI 36.5
== END | disposition home or self-care (01) ==
LOC: D.US 08:34
DX: K74.60 Unspecified cirrhosis of liver (principal)

== ENCOUNTER → 2018-03-03 13:06 | Outpatient (CLI) | payer MEDICARE, OTHER ==
[2017-06-04 13:46] VITALS: BMI 36.5
== END | disposition home or self-care (01) ==
LOC: D.CT 13:06
DX: K76.9 Liver disease, unspecified (principal); K74.60 Unspecified cirrhosis of liver

== ENCOUNTER 2018-11-01 05:07 | Inpatient (IN) | payer MEDICARE, OTHER ==
[2018-11-01] VITALS (90 sets, daily range): BP systolic 70–157; BP diastolic 26–108; BMI 33.6
--- NOTE | 2018-11-01 05:20 | NUR ---
PT TAKING SIPS OF JUICE AT THIS TIME. PT TOLERATING WELL. PT TURNED ONTO R SIDE C/O BUTTOCKS PAIN. MD INFORMED. PT HAS REDNESS/IRRITATION TO BUTTOCKS.
[2018-11-01 06:23] LABS: ALBUMIN 1.3 g/dL (3.4-5.0); ALKALINE PHOSPHATASE 187 U/L (46-116); ALT (SGPT) 233 U/L (10-68); BILIRUBIN - TOTAL 18.96 mg/dL (0.2-1.3); CALC OSMOLALITY 267 mosm/kg (275-300); CALCIUM 9.6 mg/dL (8.5-10.1); CARBON DIOXIDE 10.1 mmol/L (21.0-32.0); CHLORIDE - SERUM 93 mmol/L (98-107); CREATINE KINASE 69 UL (21-232); CREATININE - SERUM 3.5 mg/dL (0.6-1.3); GLUCOSE 128 mg/dL (74-106); LIPASE 82 U/L (73-393); MAGNESIUM - SERUM 2.4 mg/dL (1.8-2.4); PRO BNP 5785 pg/mL (0-125); PROTEIN - SERUM 5.5 g/dL (6.4-8.2); SODIUM 126 mmol/L (136-145); TROPONIN-I < 0.017 ng/mL (0.000-0.060); UREA NITROGEN 48 mg/dL (7-18); eGFR NON AFRICAN AMERICAN 18 mL/min (90-120)
[2018-11-01 06:29] LABS: POTASSIUM - SERUM 7.2 mmol/L (3.5-5.1)
--- NOTE | 2018-11-01 06:30 | NUR ---
PT FEELING BETTER ABLE TO SIT UP AND EAT SOME ORANGE SHERBERT AND DRINK SOME ORANGE JUICE. INFORMED. PT ALSO GIVEN SPRITE TO DRINK. PT DENIES OTHER NEEDS.
[2018-11-01 06:34] LABS: HEMATOCRIT 36.7 % (42.0-54.0); HEMOGLOBIN 12.3 g/dL (13.5-17.5); MCH 35.5 pg (26.0-34.0); MCHC 33.5 g/dL (31.0-37.0); MCV 106.1 fL (80.0-100.0); PLATELET COUNT 133 10x3/uL (130-400); RBC 3.46 10x6/uL (4.20-6.10); RDW 24.6 % (11.5-14.5); WBC 20.2 10x3/uL (4.8-10.8)
[2018-11-01 06:43] LABS: APTT 48.9 SECONDS (22.8-39.4); INR 3.84 (0.85-1.17); PROTIME 36.9 SECONDS (11.6-15.0)
--- NOTE | 2018-11-01 06:45 | NUR ---
PT STATES THAT HE DOESNT PRODUCE MUCH URINE NORMALLY AND HAS NOT BEEN EATING OR DRINKING WELL FOR THE LAST WEEK. INFORMED.
[2018-11-01 07:18] LABS: LYMPHOCYTES 5 % (15-50); MONOCYTES 1 % (2-11); NEUTROPHILS 81 % (40-80); PLATELET ESTIMATE NORMAL; PLATELET MORPHOLOGY PLT CLUMPS PRESENT
--- NOTE | 2018-11-01 07:20 | NUR ---
MD INFORMED THAT FLUID BOLUS WAS DONE AND PT WAS STILL HYPOTENSIVE. SEE EMAR.
[2018-11-01 10:50] LABS: % SATURATION 47 % (15-55); IRON 56 ug/dl (35-150); TOTAL IRON BIND CAPACITY 117 ug/dl (260-445); UNSAT IRON BIND CAPACITY 61 ug/dl (150-375)
--- NOTE | 2018-11-01 14:15 | NUR ---
0955 TO 1225 LEVOPHED TITRATION IN PROGRESS VS PER VS FLOW SHEET
[2018-11-01 14:43] LABS: CALCIUM 8.3 mg/dL (8.5-10.1); CREATININE - SERUM 3.4 mg/dL (0.6-1.3)
[2018-11-01 14:47] LABS: ANION GAP 24.2 mmol/L (8-16); CARBON DIOXIDE 14.2 mmol/L (21.0-32.0)
[2018-11-01 14:49] LABS: POTASSIUM - SERUM 6.4 mmol/L (3.5-5.1)
--- NOTE | 2018-11-01 17:24 | NUR ---
RX CLOSED, 10 UNITS OF REGULAR INSULIN GIVEN IV PER SAHIL BY DR. QUEZADA. CALLED HOUSE SUPERVIOSR FOR KAYEXALATE 30GRAM, WILL GIVE WHEN ARRIVES.
--- NOTE | 2018-11-01 19:50 | NUR ---
PT RECEIVED WITH EYES CLOSED AND CHEST RISING. SKIN YELLOW IN COLOR. IV TO RIGHT WRIST AND LEFT HAND, SEE IV FLOW SHEET FOR FLUIDS. PT ON RM AIR. NO AMES NOTED. SB/P >90. CALL LIGHT IN REACH. WILL CONTINUE TO OBSERVE.
[2018-11-01 20:54] LABS: ANION GAP 23.2 mmol/L (8-16); CALCIUM 8.1 mg/dL (8.5-10.1); CARBON DIOXIDE 15.6 mmol/L (21.0-32.0); CREATININE - SERUM 3.6 mg/dL (0.6-1.3); POTASSIUM - SERUM 5.8 mmol/L (3.5-5.1)
--- NOTE | 2018-11-01 22:03 | NUR ---
PT RESTING WITH EYES CLOSED AND CHEST RISING. NO S/S OF DISTRESS. EASILY AWAKENS TO VERBAL STIMULI. WILL CONTINUE TO OBSERVE.
--- NOTE | 2018-11-01 23:52 | NUR ---
REASSESSMENT COMPLETED, SEE FLOW SHEET. PT RESTING WITH EYES CLOSED AND CHEST RISING, EASILY AWOKEN TO VERBAL STIMULI. NO S/S OF DISTRESS. CALL LIGHT IN REACH. WILL CONTINUE TO OBSERVE.
[2018-11-02] VITALS (87 sets, daily range): BP systolic 73–109; BP diastolic 36–88; BMI 39.1
--- NOTE | 2018-11-02 01:45 | NUR ---
PT WITH EYES OPEN. DENIES NEED TO URINE. ASSIST GIVEN TO BEDPAN. WILL CONTINUE TO OBSERVE.
--- NOTE | 2018-11-02 02:05 | NUR ---
PT TAKEN OFF BEDPAN NO OUTPUT NOTED. NO OTHER NEEDS MADE KNOWN. CALL LIGHT IN REACH. WILL CONTINUE TO OBSERVE
--- NOTE | 2018-11-02 04:08 | NUR ---
REASSESSMENT COMPLETED, SEE FLOW SHEET. NO URINE OUTPUT NOTED AT THIS TIME. PT STATES THAT HE USUALLY DOES NOT, BLADDER SCAN COMPLETED WITH 134ML NOTED PER SCAN. WILL CONTINUE TO OBSERVE
[2018-11-02 04:28] LABS: BASOPHILS 0.1 % (0-2); EOSINOPHILS 0.1 % (0-7); HEMATOCRIT 32.1 % (42.0-54.0); IMMATURE GRANULOCYTES 0.9 % (0-5); LYMPHOCYTES 3.3 % (15-50); MCH 34.4 pg (26.0-34.0); MCHC 34.3 g/dL (31.0-37.0); MEAN PLATELET VOLUME 11.1 fL (7.4-10.4); MONOCYTES 14.9 % (2-11); NEUTROPHILS 80.7 % (40-80); RDW 24.7 % (11.5-14.5)
[2018-11-02 04:31] LABS: PROTIME 58.4 SECONDS (11.6-15.0)
[2018-11-02 04:32] LABS: MCV 100.3 fL (80.0-100.0); PLATELET COUNT 101 10x3/uL (130-400)
[2018-11-02 04:32] LABS: INR 6.83 (0.85-1.17)
[2018-11-02 04:34] LABS: BILIRUBIN - TOTAL 16.63 mg/dL (0.2-1.3); CREATININE - SERUM 3.3 mg/dL (0.6-1.3); VANCOMYCIN - RANDOM 11.8 ug/mL (10.0-20.0)
[2018-11-02 04:36] LABS: ANION GAP 20.7 mmol/L (8-16); POTASSIUM - SERUM 4.7 mmol/L (3.5-5.1)
[2018-11-02 04:37] LABS: ALBUMIN 0.9 g/dL (3.4-5.0); CALCIUM 6.3 mg/dL (8.5-10.1)
--- NOTE | 2018-11-02 06:47 | NUR ---
PT RECEIVED BATH WITH LINEN CHANGED. PT WITH SMALL BM PRIOR TO BATH SOFT FORMED. NO URINE OUTPUT THIS SHIFT. GIANA OLIVA APRN CONTACTED AND REPORTED CRITICAL LABS. NO ORDERS RECEIVED AT THIS TIME. CALL LIGHT IN REACH. WILL CONTINUE TO OBSERVE.
--- NOTE | 2018-11-02 07:00 | NUR ---
SHIFT ASSESSMENT COMPLETED, PT CARE ASSUMED, MONITORS ON AND WORKING, VITALS STABLE. NO SIGNS/SYMPTOMS OF PAIN OR DISCOMFORT NOTED AT THIS TIME, SEE FLOW SHEET FOR FURTHER DETIALS, WILL CONTINUE TO OBSERVE.
--- NOTE | 2018-11-02 09:00 | NUR ---
PT AWAKE AND ALERT, MONITORS ON AND WORKING, LEVOPHED AT 30MCG/MIN, BP IN THE 90S. CALL LIGHT WITHIN REACH, WILL CONTINUE TO OBSERVE.
--- NOTE | 2018-11-02 11:00 | NUR ---
PT TO MEDICAL IMAGING FOR CT SCAN, PT TOLERATED WELL. MONITORS ON AND WORKING, VITALS STABLE, SEE FLOW SHEET FOR FURTHER DETAILS, WILL CONTINUE TO OBSERVE.
--- NOTE | 2018-11-02 13:00 | NUR ---
PT TURNED AND REPOSITIONED, MONITORS ON AND WORKING, CALL LIGHT WITHIN REACH, WILL CONTINUE TO OBSERVE.
--- NOTE | 2018-11-02 15:00 | NUR ---
NO CHANGES, SEE FLOW SHEET FOR FURTHER DETAILS. WILL CONTINUE TO OBSERVE.
--- NOTE | 2018-11-02 17:00 | NUR ---
PT DAUGHTER CALLED. UPDATE PROVIDED. NO CHANGES, MONITORS ON AND WORKING, LEVOPHED REMAINS AT 30MCG/MIN. CALL LIGHT WITHIN REACH, WILL CONTINUE TO OBSERVE.
--- NOTE | 2018-11-02 17:05 | MORECARE ---
CASE MANAGEMENT DISCHARGE SUMMARY PATIENT: LUISA WALLACE UNIT: [id number] ADM DATE: 11/01/18 AGE: 73 : [birth year] SEX: M ROOM/BED: D.2307 AUTHOR: SARITHA ROJAS PHYSICIAN: REFERRING PHYSICIAN: NAZANIN MCINTOSH MD DATE OF SERVICE: 11/02/18 Discharge Plan Patient Name: LUISA WALLACE Facility: [facility]:[place] : 1945 Planned Disposition: Home with Home Health Anticipated Discharge Date: Discharge Date: Expected LOS: Initial Reviewer: [email or web address] Initial Review Date: 11/02/2018 Generated: 11/02/18 6:05 pm Patient Name: LUISA WALLACE Page [id number] at 1705 All edits/amendments must be made on the electronic document DICTATION DATE: 11/02/181703 SUPERVISOR CELL ROOM: ELLI 11/02/181703 RPT#: [id number] DC DATE: STATUS: ADM IN [facility] [address] [place] [address] END OF REPORT
--- NOTE | 2018-11-02 17:17 | MORECARE ---
CASE MANAGEMENT DISCHARGE SUMMARY PATIENT: LUISA WALLACE UNIT: [id number] ADM DATE: 11/01/18 AGE: 73 : 46 SEX: M ROOM/BED: D.2307 AUTHOR: BOB,DOC PHYSICIAN: REFERRING PHYSICIAN: NAZANIN MCINTOSH MD DATE OF SERVICE: 11/02/18 Discharge Plan Patient Name: LUISA WALLACE Facility: [facility]:[place] : 1945 Planned Disposition: Home with Home Health Anticipated Discharge Date: Discharge Date: Expected LOS: Initial Reviewer: [email or web address] Initial Review Date: 11/02/2018 Generated: 11/02/18 6:17 pm Comments DCP- Discharge Planning Updated by [email or web address]: Joann Franco on 11/02/18 4:[address] Patient Name: LUISA WALLACE Admission Status: ER Accout number: [id number] Admission Date: 11-01-2018 : 1945 Admission Diagnosis: Attending: NAZANIN MCINTOSH Current LOS: 1 Anticipated DC Date: Planned Disposition: Home with Home Health Primary Insurance: MEDICARE A & B Discharge Planning Comments: CM met with patient at bedside after explaining CM role and obtaining verbal consent. Patient lives at home alone and plans to return there upon discharge. Patient states that he had [facility] prior to admission and plans to resume care when discharged. KIERAN signed for [facility]. Patient states he has a walker at home and no other medical equipment. Patient denies any discharge needs at this time. CM will continue to follow and assist as needed with discharge planning / needs. Anvil Worker: Joann Franco DCPIA - Discharge Planning Initial Assessment Updated by [email or web address]: Joann Franco on 11/02/18 5:12 pm * Is the patient Alert and Oriented? Yes * How many steps to enter\exit or inside your home? * PCP MARC * [facility]acy [facility] * Preadmission Environment Home Alone * ADLs Independent * Equipment Walker * List name and contact numbers for known caregivers / representatives who currently or will assist patient after discharge: JEAN-CLAUDE SANTOS - DAUGHTER - [phone] * Verbal permission to speak to the caregivers and representatives has been obtained from the patient. Yes * Community resources currently utilized Home Health * Please name any agencies selected above. [facility] * Additional services required to return to the preadmission environment? No * Can the patient safely return to the preadmission environment? Yes * Has this patient been hospitalized within the prior 30 days at any hospital? No Last DP export: 11/02/18 4:05 p Patient Name: LUISA WALLACE Page 49409 at 1717 All edits/amendments must be made on the electronic document DICTATION DATE: 11/02/181716 GYN: ELLI 11/02/181716 RPT#: [id number] SC DATE: STATUS: ADM IN [facility] [address] [place] [address] END OF REPORT
--- NOTE | 2018-11-02 20:00 | NUR ---
PT RESTING WITH EYES CLOSED AND CHEST RISING. EASILY AWOKEN TO VERBAL STIMULI. NO S/S OF DISTRESS, ASSESSMENT COMPLETED, SEE FLOW SHEET. NO NEEDS MADE KNOWN. WILL CONTINUE TO OBSERVE
--- NOTE | 2018-11-02 21:50 | NUR ---
PT INCONTINENT OF STOOL. LIQUID STOOL NOTED. PERICARE PROVIDED AND PARTIAL LINEN CHANGE. FSBS 63 WITH HYPOGLYCEMIC PROTOCOLS FOLLOWED WIT 5%DEXTROSE GIVEN AND FSBS RECHECKED IN 30 MIN WITH READING 83. REFUSE LACTULOSE EXPLAINED WHAT THE PURPOSE OF MEDICATION WAS AND PT STATES THAT HE KNEW BUT JUST WANTED ONE DAY WITHOUT IT. MEDICATION RETURNED TO PYXIS. NO OTHER CONCERN NOTED AT THIS TIME. WILL CONTINUE TO OBSERVE.
--- NOTE | 2018-11-02 23:15 | NUR ---
PT B/P <90 FOR MULTIPLE READINGS, VESOPRESSIN STARED PER ORDERS. REASSESSMENT COMPLETED, SEE FLOW SHEET. WILL CONTINUE TO OBSERVE.
[2018-11-03] VITALS (73 sets, daily range): BP systolic 70–123; BP diastolic 20–106; BMI 39.1
--- NOTE | 2018-11-03 01:35 | NUR ---
PT COMPLAINS OF ARM DISCOMFORT. A PILLOW PROVIDED FOR POSITIONING AND ELEVATION. WILL CONTINUE TO OBSERVE.
--- NOTE | 2018-11-03 02:46 | NUR ---
B/P DROPPED <85 AND TITRATED VESOPRESSIN. MOVED BLOOD PRESSURE CUFF TO LEG AND OPPOSITE ARM TO GET COMPARISONS. LEG WERE SAME. WHEN MOVED TO LEFT ARM. NOTICE PT HAD PULLED LEFT HAND IV OUT. NEW IV TO LEFT FOREARM AND AC AND RIGHT WRIST IV D/C. USING RIGHT ARM B/P. SPO2 DROPPING WITH SENSOR REPOSITIONED AND READINGS INCREASE TO DESIRED RANGE AND WOULD DROP AGAIN PLACE ON N/C 2LPM AND WOULD CONTINUE INCREASE AND DECREASE. IV FLUIDS RESTARTED AND PT SPO2 BEGAN TO STABLIZE. WILL CONTINUE TO OBSERVE.
--- NOTE | 2018-11-03 03:31 | NUR ---
PT WITH EYES CLOSED AND CHEST RISING. REASSESSMENT COMPLETED, SEE FLOW SHEET. WILL CONTINUE TO OBSERVE.
--- NOTE | 2018-11-03 06:52 | NUR ---
PT INCONTINENT OF BOWEL WITH PERICARE PROVIDED, WHEN CHANGING LINENS PT BEGAN TO HAVE ANOTHER BM AND LAY ON NEW PAD AND ALLOWED TO FINISH. PERICARE PROVIDED AGAIN AND BATH GIVEN WITH LINEN CHANGE. TOLERATED WELL. WILL CONTINUE TO OBSERVE
--- NOTE | 2018-11-03 07:20 | NUR ---
REPORT RECEIVED. PT IS JAUNDICE AND IS IN END STAGE CIRRHOSIS. PT IS MAXED OUT ONN LEVOPHED AND VASOPRESSIN. HE ALSO HAS BICARB INFUSING INTO HIS LEFT WRIST. BP IS 112/91 CURRENTLY. PT IS DNR. LAB JUST ATTEMPTED TO DRAW BLOOD WITH THEIR 3RD COAGULATOR AND WERE UNABLE TO GET BLOOD. ONLY FLUID RETURN. BLOOD SUGAR IS CURRENTLY 64 AND PT DRANK 1 ORANGE JUICE. PT HAS REFUSED CATHETER, BUT IS NOT PRODUCING ANY URINE. WILL MONITOR.
[2018-11-03 08:13] LABS: FOLATE (FOLIC ACID) - SERUM 13.8 ng/mL (>3.0)
--- NOTE | 2018-11-03 08:15 | NUR ---
DR QUEZADA SPOKE AT LENGTH WITH PT ABOUT OUTLOOK WITH [facility]. PT WAS RECEPTIVE. PT AGREED TO LET US CALL FAMILY IN. PLAN TO PUT IN CENTRAL LINE FOR PRESSORS. ONCE FAMILY IS HERE LIKELY TO DISCUSS OTHER OPTIONS. SPOKE WITH DAUGHTER WHO LIVES IN [place]. STATED SHE WAS WORKING ON MAKING ARRANGEMENTS TO LEAVE TODAY TO COME TO .
--- NOTE | 2018-11-03 09:22 | NUR ---
SMALL LOOSE STOOL. PT CLEANED UP AND REPOSITIONED. WILL CONTINUE TO MONITOR.
--- NOTE | 2018-11-03 09:25 | NUR ---
NUTRITION F/U CHART REVIEWED. PT REMAINS ON CLEAR LIQUID DIET. WILL CONTINUE TO MONITOR DIET ADVANCEMENT. RD FOLLOWING
--- NOTE | 2018-11-03 11:00 | NUR ---
PT HAVING SOME CONFUSION. MONITORING. O2 AT 2L PUT ON PT D/T O2 SATS DROPPING AND PT STATING HE WAS HAVING A HARD TIME BREATHING.
--- NOTE | 2018-11-03 11:25 | NUR ---
LEFT SUBCLAVIAN PLACED BY DR ABRAHAM. XRAY IN NOW TO VERIFY PLACEMENT.
[2018-11-03 12:11] LABS: HEPATITIS C ANTIBODY <0.1 S/CO RAT (0.0-0.9)
[2018-11-03 12:14] LABS: HEMATOCRIT 35.4 % (42.0-54.0); HEMOGLOBIN 12.1 g/dL (13.5-17.5); MCH 34.9 pg (26.0-34.0); MCHC 34.2 g/dL (31.0-37.0); MEAN PLATELET VOLUME 10.9 fL (7.4-10.4); PLATELET COUNT 86 10x3/uL (130-400); RBC 3.47 10x6/uL (4.20-6.10)
[2018-11-03 12:18] LABS: WBC 11.1 10x3/uL (4.8-10.8)
[2018-11-03 12:23] LABS: INR 7.42 (0.85-1.17); PROTIME 62.3 SECONDS (11.6-15.0)
[2018-11-03 12:50] LABS: ALBUMIN 1.1 g/dL (3.4-5.0); ANION GAP 28.3 mmol/L (8-16); BILIRUBIN - TOTAL 19.3 mg/dL (0.2-1.3); CARBON DIOXIDE 12.9 mmol/L (21.0-32.0); POTASSIUM - SERUM 5.2 mmol/L (3.5-5.1); PROTEIN - SERUM 4.3 g/dL (6.4-8.2)
[2018-11-03 13:13] LABS: CALCIUM 6.1 mg/dL (8.5-10.1); LYMPHOCYTES 7 % (15-50); MONOCYTES 17 % (2-11); NEUTROPHILS 65 % (40-80); PLATELET ESTIMATE DECREASED
--- NOTE | 2018-11-03 13:52 | NUR ---
DR ARMIJO AWARE OF CRITICAL LABS AND OF CONVERSATION DR QUEZADA HAD WITH PT THIS MORNING. AWARE PT'S DAUGHTER SHOULD BE HERE BY 1800.
--- NOTE | 2018-11-03 14:12 | NUR ---
PT GIVEN CHG BATH. SMALL BM NOTED. O2 AT 3L. VSS. VASOPRESSIN AND LEVOPHED AND BICARB INFUSING INTO LEFT SUBCLAVIAN. WILL CONTINUE TO MONITOR.
--- NOTE | 2018-11-03 14:45 | NUR ---
PT DRANK 120 OF ORANGE JUICE. BLOOD SUGAR WAS 62. WILL RECHECK.
--- NOTE | 2018-11-03 16:52 | NUR ---
DAUGHTER AT BEDSIDE. STATED SHE WANTED TO MAKE HER DAD COMFORTABLE POSSIBLE. PAGED DR HANCOCK TO COME TALK TO FAMILY TO SEE ABOUT PALLIATIVE CARE.
--- NOTE | 2018-11-03 17:28 | MORECARE ---
CASE MANAGEMENT DISCHARGE SUMMARY PATIENT: LIUSA WALLACE UNIT: [id number] ADM DATE: 11/01/18 AGE: 73 : 46 SEX: M ROOM/BED: D.2307 AUTHOR: BOB,DOC PHYSICIAN: REFERRING PHYSICIAN: NAZANIN MCINTOSH MD DATE OF SERVICE: 11/03/18 Discharge Plan Patient Name: LUISA WALLACE Facility: [facility]:[place] : 1945 Planned Disposition: Home with Home Health Anticipated Discharge Date: Discharge Date: Expected LOS: Initial Reviewer: [email or web address] Initial Review Date: 11/02/2018 Generated: 11/03/18 6:28 pm Comments DCP- Discharge Planning Updated by [email or web address]: Joann Franco on 11/02/18 4:[address] Patient Name: LUISA WALLACE Admission Status: ER Accout number: [id number] Admission Date: 11-01-2018 : 1945 Admission Diagnosis: Attending: NAZANIN MCINTOSH Current LOS: 1 Anticipated DC Date: Planned Disposition: Home with Home Health Primary Insurance: MEDICARE A & B Discharge Planning Comments: CM met with patient at bedside after explaining CM role and obtaining verbal consent. Patient lives at home alone and plans to return there upon discharge. Patient states that he had [facility] prior to admission and plans to resume care when discharged. KIERAN signed for [facility]. Patient states he has a walker at home and no other medical equipment. Patient denies any discharge needs at this time. CM will continue to follow and assist as needed with discharge planning / needs. Television Camera Operator: Joann Franco DCPIA - Discharge Planning Initial Assessment Updated by [email or web address]: Joann Franco on 11/02/18 5:12 pm * Is the patient Alert and Oriented? Yes * How many steps to enter\exit or inside your home? * PCP MARC * Pharmacy [facility] * Preadmission Environment Home Alone * ADLs Independent * Equipment Walker * List name and contact numbers for known caregivers / representatives who currently or will assist patient after discharge: JEAN-CLAUDE SANTOS - DAUGHTER - [phone] * Verbal permission to speak to the caregivers and representatives has been obtained from the patient. Yes * Community resources currently utilized Home Health * Please name any agencies selected above. [facility] * Additional services required to return to the preadmission environment? No * Can the patient safely return to the preadmission environment? Yes * Has this patient been hospitalized within the prior 30 days at any hospital? No External Providers External Provider: [facility] Next Contact Date: Service Request Date: Service Type: Resolution: Reviewer: Comments: Last DP export: 11/02/18 4:17 p Patient Name: LUISA WALLACE Page 77498 at 1728 All edits/amendments must be made on the electronic document DICTATION DATE: 11/03/181727 TRIM TECHNICIAN: ELLI 11/03/181727 RPT#: [id number] DC DATE: STATUS: ADM IN [facility] [address] [place] [address] END OF REPORT
--- NOTE | 2018-11-03 17:43 | MORECARE ---
CASE MANAGEMENT DISCHARGE SUMMARY PATIENT: LUISA WALLACE UNIT: [id number] ADM DATE: 11/01/18 AGE: 73 : 46 SEX: M ROOM/BED: D.2307 AUTHOR: BOB,DOC PHYSICIAN: REFERRING PHYSICIAN: NAZANIN MCINTOSH MD DATE OF SERVICE: 11/03/18 Discharge Plan Patient Name: LUISA WALLACE Facility: [facility]:[place] : 1945 Planned Disposition: Home with Home Health Anticipated Discharge Date: Discharge Date: Expected LOS: Initial Reviewer: [email or web address] Initial Review Date: 11/02/2018 Generated: 11/03/18 6:43 pm Comments DCP- Discharge Planning Updated by [email or web address]: Joann Franco on 11/03/18 4:[address] CM WAS NOTIFIED THAT PATIENT AND FAMILY (DAUGHTER IS HERE FROM OUT OF STATE) ARE REQUESTING HOSPICE FOR COMFORT CARE IN PATIENT. [facility] CALLED AND CM FAXED OVER RECORDS. [facility] AVIATION ELECTRICIAN NURSE CALLED AND STATED SHE WOULD BE HERE AROUND 1830. CM WILL CONTINUE TO FOLLOW AND ASSIST NEEDED WITH DISCHARGE PLANNING / NEEDS. DCP- Discharge Planning Updated by [email or web address]: Joann Franco on 11/02/18 4:[address] Patient Name: LUISA WALLACE Admission Status: ER Accout number: [id number] Admission Date: 11-01-2018 : 1945 Admission Diagnosis: Attending: NAZANIN MCINTOSH Current LOS: 1 Anticipated DC Date: Planned Disposition: Home with Home Health Primary Insurance: MEDICARE A & B Discharge Planning Comments: CM met with patient at bedside after explaining CM role and obtaining verbal consent. Patient lives at home alone and plans to return there upon discharge. Patient states that he had [facility] prior to admission and plans to resume care when discharged. KIERAN signed for [facility]. Patient states he has a walker at home and no other medical equipment. Patient denies any discharge needs at this time. CM will continue to follow and assist as needed with discharge planning / needs. Maintenance Department Technician: Joann Franco DCPIA - Discharge Planning Initial Assessment Updated by [email or web address]: Joann Franco on 11/02/18 5:12 pm * Is the patient Alert and Oriented? Yes * How many steps to enter\exit or inside your home? * PCP MARC * [facility] * Preadmission Environment Home Alone * ADLs Independent * Equipment Walker * List name and contact numbers for known caregivers / representatives who currently or will assist patient after discharge: JEAN-CLAUDE SANTOS - DAUGHTER - [phone] * Verbal permission to speak to the caregivers and representatives has been obtained from the patient. Yes * Community resources currently utilized Home Health * Please name any agencies selected above. [facility] * Additional services required to return to the preadmission environment? No * Can the patient safely return to the preadmission environment? Yes * Has this patient been hospitalized within the prior 30 days at any hospital? No Last DP export: 11/03/18 4:28 p Patient Name: LUISA WALLACE Page 88092 at 1743 All edits/amendments must be made on the electronic document DICTATION DATE: 11/03/181742 ENAMEL BURNER: ELLI 11/03/181742 RPT#: [id number] DC DATE: STATUS: ADM IN [facility] [address] [place] [address] END OF REPORT
--- NOTE | 2018-11-03 17:50 | MORECARE ---
CASE MANAGEMENT DISCHARGE SUMMARY PATIENT: LUISA WALLACE UNIT: [id number] ADM DATE: 11/01/18 AGE: 73 : 46 SEX: M ROOM/BED: D.2307 AUTHOR: BOB,DOC PHYSICIAN: REFERRING PHYSICIAN: NAZANIN MCINTOSH MD DATE OF SERVICE: 11/03/18 Discharge Plan Patient Name: LUISA WALLACE Facility: [facility]:[place] : 1945 Planned Disposition: Home with Home Health Anticipated Discharge Date: Discharge Date: Expected LOS: Initial Reviewer: [email or web address] Initial Review Date: 11/02/2018 Generated: 11/03/18 6:50 pm Comments DCP- Discharge Planning Updated by [email or web address]: Joann Franco on 11/03/18 4:[address] CM WAS NOTIFIED THAT PATIENT AND FAMILY (DAUGHTER IS HERE FROM OUT OF STATE) ARE REQUESTING HOSPICE FOR COMFORT CARE IN PATIENT. [facility] CALLED AND CM FAXED OVER RECORDS. [facility] PROFESSOR OF FORESTRY NURSE CALLED AND STATED SHE WOULD BE HERE AROUND 1830. CM WILL CONTINUE TO FOLLOW AND ASSIST NEEDED WITH DISCHARGE PLANNING / NEEDS. DCP- Discharge Planning Updated by [email or web address]: Joann Franco on 11/02/18 4:[address] Patient Name: LUISA WALLACE Admission Status: ER Accout number: [id number] Admission Date: 11-01-2018 : 1945 Admission Diagnosis: Attending: NAZANIN MCINTOSH Current LOS: 1 Anticipated DC Date: Planned Disposition: Home with Home Health Primary Insurance: MEDICARE A & B Discharge Planning Comments: CM met with patient at bedside after explaining CM role and obtaining verbal consent. Patient lives at home alone and plans to return there upon discharge. Patient states that he had [facility] prior to admission and plans to resume care when discharged. KIERAN signed for [facility]. Patient states he has a walker at home and no other medical equipment. Patient denies any discharge needs at this time. CM will continue to follow and assist as needed with discharge planning / needs. Art Model: Joann Franco DCPIA - Discharge Planning Initial Assessment Updated by [id number]: Joann Franco on 11/02/18 5:12 pm * Is the patient Alert and Oriented? Yes * How many steps to enter\exit or inside your home? * PCP MARC * [facility] * Preadmission Environment Home Alone * ADLs Independent * Equipment Walker * List name and contact numbers for known caregivers / representatives who currently or will assist patient after discharge: JEAN-CLAUDE SANTOS - DAUGHTER - [phone] * Verbal permission to speak to the caregivers and representatives has been obtained from the patient. Yes * Community resources currently utilized Home Health * Please name any agencies selected above. [facility] * Additional services required to return to the preadmission environment? No * Can the patient safely return to the preadmission environment? Yes * Has this patient been hospitalized within the prior 30 days at any hospital? No Last DP export: 11/03/18 4:43 p Patient Name: LUISA WALLACE Page 38105 at 1750 All edits/amendments must be made on the electronic document DICTATION DATE: 11/03/181749 BIG DATA ADMIN: ELLI 11/03/181749 RPT#: [id number] DC DATE: STATUS: ADM IN [facility] [address] [place] [address] END OF REPORT
--- NOTE | 2018-11-03 17:52 | NUR ---
HOSPICE CONSULTED. STATED THEY WERE COMING FROM [facility] AND SHOULD BE HERE BETWEEN [phone]. MORPHINE WAS GIVEN TO PT FOR PAIN IN ABD. PT CONTINUES TO TAKE OFF O2. O2 SAT 94%. PT STILL ON PRESSORS TO LEFT SUBC. NO OTHER NEEDS AT THIS TIME. WILL CONTINUE TO MONITOR.
--- NOTE | 2018-11-04 09:26 | MORECARE ---
CASE MANAGEMENT DISCHARGE SUMMARY PATIENT: LUISA WALLACE UNIT: [id number] ADM DATE: 11/01/18 AGE: 73 : 46 SEX: M ROOM/BED: D.2307 AUTHOR: BOB,DOC PHYSICIAN: REFERRING PHYSICIAN: NAZANIN MCINTOSH MD DATE OF SERVICE: 11/04/18 Discharge Plan Patient Name: LUISA WALLACE Facility: [facility]:[place] : 1945 Planned Disposition: Home with Home Health Anticipated Discharge Date: Discharge Date: 11/03/2018 Expected LOS: Initial Reviewer: [email or web address] Initial Review Date: 11/02/2018 Generated: 11/04/18 10:26 am Comments DCP- Discharge Planning Updated by [email or web address]: Joann Franco on 11/03/18 4:[address] CM WAS NOTIFIED THAT PATIENT AND FAMILY (DAUGHTER IS HERE FROM OUT OF STATE) ARE REQUESTING HOSPICE FOR COMFORT CARE IN PATIENT. [facility] CALLED AND CM FAXED OVER RECORDS. [facility] INJECTION MOLDER NURSE CALLED AND STATED SHE WOULD BE HERE AROUND 1830. CM WILL CONTINUE TO FOLLOW AND ASSIST NEEDED WITH DISCHARGE PLANNING / NEEDS. DCP- Discharge Planning Updated by [email or web address]: Joann Franco on 11/02/18 4:[address] Patient Name: LUIAS WALLACE Admission Status: ER Accout number: [id number] Admission Date: 11-01-2018 : 1945 Admission Diagnosis: Attending: NAZANIN MCINTOSH Current LOS: 1 Anticipated DC Date: Planned Disposition: Home with Home Health Primary Insurance: MEDICARE A & B Discharge Planning Comments: CM met with patient at bedside after explaining CM role and obtaining verbal consent. Patient lives at home alone and plans to return there upon discharge. Patient states that he had [facility] prior to admission and plans to resume care when discharged. KIERAN signed for [facility]. Patient states he has a walker at home and no other medical equipment. Patient denies any discharge needs at this time. CM will continue to follow and assist as needed with discharge planning / needs. Gearman: Joann Franco DCPIA - Discharge Planning Initial Assessment Updated by [email or web address]: Joann Franco on 11/02/18 5:12 pm * Is the patient Alert and Oriented? Yes * How many steps to enter\exit or inside your home? * PCP MARC * [facility] * Preadmission Environment Home Alone * ADLs Independent * Equipment Walker * List name and contact numbers for known caregivers / representatives who currently or will assist patient after discharge: JEAN-CLAUDE SANTOS - DAUGHTER - [phone] * Verbal permission to speak to the caregivers and representatives has been obtained from the patient. Yes * Community resources currently utilized Home Health * Please name any agencies selected above. [facility] * Additional services required to return to the preadmission environment? No * Can the patient safely return to the preadmission environment? Yes * Has this patient been hospitalized within the prior 30 days at any hospital? No Last DP export: 11/03/18 4:50 p Patient Name: LUISA WALLACE Page 67018 at 0926 All edits/amendments must be made on the electronic document DICTATION DATE: 11/04/18925 FMD TEACHER: ELLI 11/04/18925 RPT#: [id number] DC DATE:11/03/18 STATUS: DIS IN [facility] [address] [place] [address] END OF REPORT
--- NOTE | 2018-11-05 09:03 | OP ---
PATIENT NAME: LUISA WALLACE MEDICAL RECORD: [id number] :[birth year] LOCATION:.[facility] D.2307 ADMISSION DATE:11/01/18 SURGEON: TAMMY ABRAHAM MD DATE OF OPERATION: 11/03/2018 PREOPERATIVE DIAGNOSES: 1. End-stage alcoholic liver cirrhosis. 2. Hepatic encephalopathy. 3. Hepatic coagulopathy. 4. Bacteremia 5. Septic shock. 6. Acute renal failure. POSTOPERATIVE DIAGNOSES: 1. End-stage alcoholic liver cirrhosis. 2. Hepatic encephalopathy. 3. Hepatic coagulopathy. 4. Bacteremia 5. Septic shock. 6. Acute renal failure. PROCEDURE: Left subclavian vein triple-lumen central venous line placement. SURGEON: Tammy Abraham MD REPORT OF PROCEDURE: The patient's left chest was prepped and draped in sterile fashion. A total of 5 cc of 1% lidocaine with epinephrine was infused into the surrounding tissues. A needle was then used to cannulate the left subclavian vein. A guidewire was advanced with ease. Over this wire, a dilator was placed followed by the triple lumen catheter. The catheter aspirated nonpulsatile dark blood and flushed easily in all 3 ports. This was sutured in place with 3-0 Prolene and dressed appropriately. COMPLICATIONS: None. CONDITION: Stable. ANESTHESIA: Local. BLOOD LOSS: Minimal. Procedure done in the ICU at the bedside. TRANSINT:[id number] Voice Confirmation ID: [id number] DOCUMENT ID: [id number] TAMMY ABRAHAM MD at 0903 CC: [id number] DICTATION DATE: 11/03/18 1312 CERTIFIED MEDICAL BILLER: 11/03/18 1422 DIS IN 11/03/18 [facility] [address] [place] [address]
== END 2018-11-03 20:40 | disposition hospice, inpatient (51) | DRG 871 ==
LOC: D.ER 05:07 → D.M2 05:23 → D.ICU 05:23
PROVIDERS: Family Medicine; Internal Medicine Gastroenterology; Internal Medicine Nephrology; ADMIT Internal Medicine Nephrology; ATTEND Internal Medicine Nephrology
PROC: 05H633Z Insertion of Infusion Device into Left Subclavian Vein, Percutaneous Approach (ICD-10-PCS; principal; 2018-11-03)
DX: A41.9 Sepsis, unspecified organism (principal); R65.21 Severe sepsis with septic shock; K72.00 Acute and subacute hepatic failure without coma; E43 Unspecified severe protein-calorie malnutrition; N17.9 Acute kidney failure, unspecified; E87.2 Acidosis; R17 Unspecified jaundice; E87.0 Hyperosmolality and hypernatremia; E87.1 Hypo-osmolality and hyponatremia; Z66 Do not resuscitate; K70.30 Alcoholic cirrhosis of liver without ascites; I10 Essential (primary) hypertension; Z91.14 Patient's other noncompliance with medication regimen; R68.0 Hypothermia, not associated with low environmental temperature; E87.5 Hyperkalemia

== ENCOUNTER 2018-11-03 20:40 | Inpatient (IN) | payer OTHER ==
[2018-11-03 19:00] VITALS: BP 107/85
--- NOTE | 2018-11-03 19:00 | NUR ---
KEL ROJO WITH [facility] HERE TO SEE PATIENT.
[2018-11-03 20:00] VITALS: BP 103/52
--- NOTE | 2018-11-03 20:11 | NUR ---
IV GTTS AND FLUIDS STOPPED AT THIS TIME PER MD ORDER
[2018-11-03 21:00] VITALS: BP 70/49
--- NOTE | 2018-11-03 21:00 | NUR ---
PATIENT AWAKE. RESPONSIVE. FAMILY AT BEDSIDE. VSS
--- NOTE | 2018-11-03 21:41 | NUR ---
ECG MONITOR ALARMING. INTO PATIENT ROOM. HR 38 THEN ASYSTOLE. FAMILY CALLED BACK TO BEDSIDE.
--- NOTE | 2018-11-03 21:45 | NUR ---
TIME OF PRONOUNCED PER SLOT TAG INSERTER KEL. FAMILY CONTINUES AT BEDSIDE
[2018-11-03 23:08] VITALS: BP 99/46; BMI 40.0
--- NOTE | 2018-11-03 23:29 | NUR ---
HOME TRANSPORTED PATIENT OUT OF FACILITY
[2018-11-04 08:32] VITALS: BMI 40.0
== END 2018-11-03 23:29 | DRG 951 ==
LOC: D.ICU 20:40
PROVIDERS: ADMIT Legal Medicine; ATTEND Legal Medicine
DX: Z51.5 Encounter for palliative care (principal)